=== PATIENT | male | born 1990 | race Caucasian/White ===

== ENCOUNTER 2019-12-14 19:35 | Emergency (ER) | payer BC ==
--- NOTE | 2019-12-14 20:01 | ED Physician Documentation ---
History of Present Illness - Stated complaint Stated Complaint: FLU SX - Chief complaint Chief Complaint: Heent - History obtained from History obtained from: Patient - History of Present Illness Timing: Today Pain level max: 0 Pain level now: 0 - Additonal information Additional information: 29-year-old male presents to the emergency department complaining of fever of 102 at home. Headache body aches, chills. He was seen at [facility] in [place] today in the emergency department, states had normal blood work and a negative chest x-ray and sent home. Concerned about possible influenza versus Covid. Mild cough, unchanged from his baseline. No vomiting. Occasional abdominal pain. Has constipation. Review of Systems Constitutional: reports: Fever, Chills, Myalgias Respiratory: denies: Cough GI: denies: Abdominal Pain, Nausea, Vomiting, Diarrhea Skin: denies: Rash Musculoskeletal: denies: Neck pain, Back pain Neurologic: denies: Headache PD PAST MEDICAL HISTORY - Past Medical History Past Medical History: Yes Cardiovascular: Hypertension - Past Surgical History Past Surgical History: No - Present Medications Home Medications: Ambulatory Orders Medication Instructions Recorded Confirmed Losartan [Cozaar] 50 PO DAILY 12/14/19 12/14/19 traZODone [Desyrel] 100 mg PO HS PRN 12/14/19 12/14/19 - Living Situation Living Situation: reports: With family Living Arrangement: reports: At home - Social History Does the pt smoke?: No Does the pt drink ETOH?: Yes Substance Use and Type: Marijuana PD ED PE NORMAL - Vitals Vital signs reviewed: Yes - General General: Alert and oriented X 3, No acute distress, Well developed/nourished - HEENT HEENT: PERRL, Ears normal, Moist mucous membranes, Pharynx benign - Neck Neck: Supple, no meningeal sign, Other (FROM without pain) - Cardiac Cardiac: RRR, No murmur, Strong equal pulses - Respiratory Respiratory: No respiratory distress, Clear bilaterally - Abdomen Abdomen: Soft, Non tender, Non distended - Derm Derm: Warm and dry, No rash - Extremities Extremities: No edema - Neuro Neuro: Alert and oriented X 3, dining car steward 2-12 intact, No motor deficit, No sensory deficit, Normal speech Eye Opening: Spontaneous Motor: Obeys Commands Verbal: Oriented GCS Score: 15 - Psych Psych: Normal mood, Normal affect Results - Vitals Vitals: Vital Signs - 24 hr 12/14/19 12/14/19 12/14/19 19:40 21:21 21:22 Temperature 36.6 C 36.3 C L 36.3 C L Heart Rate 92 86 86 Respiratory 18 16 16 Rate Blood Pressure 137/81 H 129/76 129/76 O2 Saturation 97 96 96 Oxygen O2 Source Room air - Labs Labs: Laboratory Tests 12/14/19 20:01 Nasal Adenovirus (PCR) NOT DETECTED Nasal B. parapertussis DNA (PCR) NOT DETECTED Nasal Coronavir 229E PCR NOT DETECTED Nasal Coronavir HKU1 PCR NOT DETECTED Nasal Coronavir NL63 PCR NOT DETECTED Nasal Coronavir OC43 PCR NOT DETECTED Nasal Enterovir/Rhinovir PCR DETECTED A Nasal Influenza B PCR NOT DETECTED Nasal Influenza A PCR NOT DETECTED Nasal Parainfluen 1 PCR NOT DETECTED Nasal Parainfluen 2 PCR NOT DETECTED Nasal Parainfluen 3 PCR NOT DETECTED Nasal Parainfluen 4 PCR NOT DETECTED Nasal RSV (PCR) NOT DETECTED Nasal B.pertussis DNA PCR NOT DETECTED Nasal C.pneumoniae (PCR) NOT DETECTED [place] Human Metapneumo PCR NOT DETECTED Nasal M.pneumoniae (PCR) NOT DETECTED Nasal SARS-CoV-2 (PCR) NOT DETECTED PD MEDICAL DECISION MAKING - ED course Complexity details: reviewed old records, reviewed results, re-evaluated patient, considered differential, d/w patient ED course: Patient is positive for enterovirus and rhinovirus. The records from [facility] in [place] were obtained, those records state that he tested negative for coronavirus and influenza yesterday, patient denies this to me. Patient is well-appearing, nontoxic. Afebrile. No evidence of meningitis. No evidence of pneumonia or sepsis. Patient and family counseled regarding signs and symptoms for which I believe and urgent re-evaluation would be necessary. Patient with good understanding of and agreement to plan and is comfortable going home at this time This document was made in part using voice recognition software. While efforts are made to proofread this document, sound alike and grammatical errors may occur. Departure - Departure Disposition: 01 Home, Self Care Clinical Impression: Viral syndrome Condition: Good Instructions: ED Viral Syndrome Follow-Up: MEGHAN WASHINGTON [Primary Care Provider] - Within 1 week Comments: Go home and rest. Drink plenty of fluids. Your coronavirus test and influenza tests are negative. You are positive for enterovirus/rhinovirus. This is a common viral illness and will resolve on its own. Discharge Date/Time: 12/14/19 21:23
[2019-12-14 21:09] LABS: C. PNEUMONIAE- RESP PCR PANEL NOT DETECTED
[2019-12-14 21:21] VITALS: BP 129/76
== END 2019-12-14 21:23 | disposition home or self-care (01) ==
LOC: ED 19:35
DX: B34.8 Other viral infections of unspecified site (principal); Z20.828 Contact with and (suspected) exposure to other viral communicable diseases; I10 Essential (primary) hypertension
CPT/HCPCS: 0202U; 99283; 99284

== ENCOUNTER 2022-09-02 09:34 | Emergency (ER) | payer BC ==
--- NOTE | 2022-09-02 09:49 | ED Physician Documentation ---
PD HPI ABD PAIN - Stated complaint Stated Complaint: ABD PX - History obtained from History obtained from: Patient - History of Present Illness Timing - onset: Today, Last night (about 3 am) Timing - duration: Hours Timing - details: Abrupt onset, Still present (has increased the past 1-2 hours), Still present in ED Quality: Cramping, Aching, Pain Location: LLQ Radiation: Left flank Improved by: No: Eating, Laying still Worsened by: Palpation (somewaht). No: Eating, Moving Associated symptoms: Nausea. No: Fever, Diarrhea, Constipation, Dysuria Similar symptoms before: Diagnosis (has history of UC and will get cramping pains at times. Had a kidney stone 8 years ago that passed in couple days.) Recently seen: Not recently seen Review of Systems Constitutional: denies: Fever, Chills Cardiac: denies: Chest pain / pressure Respiratory: denies: Dyspnea, Cough GI: reports: Abdominal Pain (since 3 am), Nausea. denies: Vomiting, Diarrhea : denies: Dysuria, Hematuria PD PAST MEDICAL HISTORY - Past Medical History Cardiovascular: Hypertension GI: Ulcerative colitis - Past Surgical History Past Surgical History: No - Present Medications Home Medications: Ambulatory Orders Medication Instructions Recorded Confirmed Losartan [Cozaar] 25 mg PO DAILY 12/14/19 09/02/22 traZODone [Desyrel] 100 mg PO HS PRN 12/14/19 09/02/22 DULoxetine [Cymbalta] 60 mg PO DAILY 09/02/22 09/02/22 Omeprazole 20 mg PO DAILY 09/02/22 09/02/22 Ondansetron Odt [Zofran] 4 mg TL Q6H PRN #10 tablet 09/02/22 Semaglutide [Ozempic] 09/02/22 Tamsulosin [Flomax] 0.4 mg PO DAILY #5 cap 09/02/22 oxyCODONE [Roxicodone] 5 mg PO Q4H PRN #14 tablet 09/02/22 - Allergies Allergies/Adverse Reactions: Allergies Allergy/AdvReac Type Severity Reaction Status Date / Time erythromycin base AdvReac Unknown Verified 09/02/22 10:00 - Social History Does the pt smoke?: No Does the pt drink ETOH?: Yes PD ED PE NORMAL - Vitals Vital signs reviewed: Yes - General General: Alert and oriented X 3, Well developed/nourished, Other (appears in significant pain. ) - Cardiac Cardiac: RRR, No murmur - Respiratory Respiratory: Clear bilaterally - Abdomen Abdomen: Normal bowel sounds, Soft, Non distended, No organomegaly, Other (LLQ tender with some guarding. No percussion tenderness. ) - Male Male : Deferred. No: Other (left inguinal lump maybe small hernia but is not tender. ) - Rectal Rectal: Deferred - Back Back: Other (some left CVA tender. ) - Derm Derm: Normal color, Warm and dry - Extremities Extremities: No edema, No calf tenderness / cord Results - Vitals Vitals: Oxygen O2 Source Room air - Labs Labs: Laboratory Tests 09/02/22 09/02/22 09/02/22 10:35 10:53 10:53 WBC 12.4 H RBC 5.40 Hgb 16.0 Hct 47.2 MCV 87.4 MCH 29.6 MCHC 33.9 RDW 12.0 Plt Count 235 MPV 11.9 H Neut # (Auto) 11.1 H Lymph # (Auto) 0.8 L Rains # (Auto) 0.4 Eos # (Auto) 0.0 Baso # (Auto) 0.0 Absolute Nucleated RBC 0.00 Nucleated RBC % 0.0 Sodium 137 Potassium 4.3 Chloride 104 Carbon Dioxide 28 Anion Gap 5.0 L BUN 13 Creatinine 1.1 Estimated GFR (MDRD) 77 L Glucose 111 H Calcium 9.4 Total Bilirubin 0.6 AST 28 ALT 48 Alkaline Phosphatase 81 Total Protein 7.0 Albumin 4.6 Globulin 2.4 Albumin/Globulin Ratio 1.9 Lipase 12 Urine Color BROWN Urine Clarity CLOUDY Urine pH 5.0 Ur Specific [place] >=1.030 H Urine Protein 100 H Urine Glucose (UA) NEGATIVE Urine Ketones 15 H Urine Occult Blood LARGE H Urine Nitrite NEGATIVE Urine Bilirubin NEGATIVE Urine Urobilinogen 0.2 (NORMAL) Ur Leukocyte Esterase NEGATIVE Urine RBC TNTC H Urine WBC 0-3 Ur Squamous Epith Cells NONE SEEN Urine Bacteria Few Ur Microscopic Review INDICATED Urine Culture Comments NOT INDICATED - Rads (name of study) abd/pelvic CT Relevant Findings:: Prelim report reviewed (Radiology report states the inguinal hernia with fat tissue only. No mention of the ureteral stone.), EMP independent interpretation of test (left sided distal ureteral stone 4 cm, without much hydronephrosis. Left inguinal hernia incidentally noted. ), See rad report PD Medical Decision Making - ED course Complexity details: re-evaluated patient (he is much improved with IV fluids and medications of toradol and dilaudid. He states he did not need repeat dosings. ), considered differential (his symptoms are c/w kidney stone though consider an episode of UC (he has history of UC). Could also consider diverticulitis. To get CT.), d/w patient Reviewed Lab Results: UA is clear. Labs showing normal WBC and renal funciton. Lipase normal. CT scan read by Radiology said no stone, but I clearly see a 4 mm stone at distal ureter almost to bladder directly in the urteral line. No coloitis seen. I will go with my interpretation of the CT and treat as kidney stone passing. Departure - Departure Disposition: 01 Home, Self Care Clinical Impression: Left sided abdominal pain, Ureterolithiasis Condition: Stable Record reviewed to determine appropriate education?: Yes Follow-Up: Colten Lopez MD [Provider Admit Priv/Credential] - Prescriptions: Tamsulosin [Flomax] 0.4 mg PO DAILY #5 cap oxyCODONE [Roxicodone] 5 mg PO Q4H PRN #14 tablet PRN Reason: Pain Ondansetron Odt [Zofran] 4 mg TL Q6H PRN #10 tablet PRN Reason: Nausea / Vomiting Comments: You do have a 4 mm stone at the end of the ureter on the left almost into the bladder. This has good probability of passing in the next 1 or 2 days. Stay adequately hydrated. Use anti-inflammatory such as naproxen or ibuprofen 2-3 times daily. Also add tamsulosin daily for the next few days. This tries to reduce the ureter tone and spasms to promote passage. Add ondansetron if needed for nausea and Tylenol 500 to 650 mg 4 times daily over the next few days. To that add oxycodone every 4-6 hours if needed for worse pain. I sent your prescriptions to the [facility] pharmacy in [place]. Follow-up with your primary care or urology if not completely resolved over the next several days to a week. Return to the ER sooner if worsening. Incidental on your CT scan was a small inguinal hernia on the left. No particular treatment needed for this if it does not have any symptoms or bother you. I am prescribing a short course of narcotic pain medication for you. These are potentially dangerous and addictive medications that should be used carefully. These medications may constipate you. Take an [id number] stool softener such as docusate twice daily with plenty of water while taking these medications. If you go 24 hours without a bowel movement, take [id number] MiraLAX, per package instructions. Do not drink or drive while taking these medications. If you received narcotic or sedating medications while in the emergency department do not drive for 24 hours. Store this medication in a safe, secure place and out of reach of children. It is a violation of federal law to give or sell this medication to another person or to use in a manner other than prescribed. The ED will not refill narcotic prescriptions, including prescriptions lost or stolen. You can dispose of unwanted medications at the [facility]'s office or at several pharmacies such as [facility]. Forms: PCP List Discharge Date/Time: 09/02/22 13:29
[2022-09-02 10:06] VITALS: BP 138/86
[2022-09-02] MEDS ORDERED: SODIUM CHLORIDE 0.9% 1,000 ML IV STA (10:10)
[2022-09-02] MEDS ORDERED: KETOROLAC 15 MG/ML VIAL IVP STA (10:10)
[2022-09-02] MEDS ORDERED: HYDROmorphone 1 MG/ML CARPUJECT IVP STA (10:10)
[2022-09-02] MEDS ORDERED: ONDANSETRON 4 MG/2 ML VIAL IVP STA (10:10)
[2022-09-02 10:42] LABS: GLUCOSE, URINE (UA) NEGATIVE (NEGATIVE); KETONES,URINE (UA) 15 mg/dL (NEGATIVE); LEUKOCYTE ESTERASE, URINE NEGATIVE (NEGATIVE); NITRITE,URINE NEGATIVE (NEGATIVE); OCCULT BLOOD,URINE LARGE (NEGATIVE); PROTEIN,URINE 100 mg/dL (NEGATIVE); UROBILINOGEN,URINE 0.2 (NORMAL) E.U./dL (NORMAL)
[2022-09-02 10:45] LABS: CLARITY,URINE CLOUDY (CLEAR)
[2022-09-02 10:49] LABS: BILIRUBIN,URINE NEGATIVE (NEGATIVE); ICTOTEST,URINE NEGATIVE
[2022-09-02 10:53] LABS: BACTERIA,URINE Few /HPF (None Seen); RBC,URINE TNTC /HPF (0-5); SQUAMOUS EPITHELIAL CELL,UR NONE SEEN (<= Few); WBC,URINE 0-3 /HPF (0-3)
[2022-09-02 11:08] LABS: BASOPHILS % (AUTO) 0.2 %; EOSINOPHILS % (AUTO) 0.2 %; HCT - HEMATOCRIT 47.2 % (42.0-52.0); LYMPHOCYTES # (AUTO) 0.8 10^3/uL (1.5-3.5); LYMPHOCYTES % (AUTO) 6.5 %; MEAN CORPUSCULAR HEMOGLOBIN 29.6 pg (27.0-31.0); MEAN CORPUSCULAR HGB CONC 33.9 g/dL (32.0-36.0); MEAN CORPUSCULAR VOLUME 87.4 fL (80.0-94.0); MEAN PLATELET VOLUME 11.9 fL (7.4-11.4); MONOCYTES # (AUTO) 0.4 10^3/uL (0.0-1.0); MONOCYTES % (AUTO) 3.4 %; NEUTROPHILS # (AUTO) 11.1 10^3/uL (1.5-6.6); NEUTROPHILS % (AUTO) 89.4 %; PLT - PLATELET COUNT 235 10^3/uL (130-450); WHITE BLOOD COUNT 12.4 x10^3/uL (4.8-10.8)
[2022-09-02 11:21] LABS: ALBUMIN 4.6 g/dL (3.2-5.5); ALBUMIN/GLOBULIN RATIO 1.9 (1.0-2.2); BILIRUBIN,TOTAL 0.6 mg/dL (0.2-1.0); CALCIUM 9.4 mg/dL (8.5-10.3); CREATININE 1.1 mg/dL (0.6-1.3); POTASSIUM 4.3 mmol/L (3.5-4.5)
[2022-09-02] MEDS ORDERED: iohexoL-300 100 ML VIAL ONE (11:35)
[2022-09-02] MEDS ORDERED: iohexoL-300 100 ML VIAL IVP ONE (11:57)
--- NOTE | 2022-09-02 12:25 | CT Report ---
PROCEDURE: CT abdomen and pelvis with contrast INDICATIONS: abd pain left side, onset this AM. CONTRAST: 100 omni 300 TECHNIQUE: After the administration of contrast, 5 mm thick sections acquired from the diaphragms to the symphys is. 5 mm thick coronal and sagittal reformats were acquired. For radiation dose reduction, the foll owing was used: automated exposure control, adjustment of mA and/or kV according to patient size. COMPARISON: FINDINGS: Image quality: Excellent. Lung bases and heart: Unremarkable. Small hiatal hernia Liver: Hepatic fatty infiltration without focal mass lesion Gallbladder and biliary tree: Spleen: No splenomegaly. Pancreas: No pancreatic ductal dilation. Adrenals: No adrenal nodule. Kidneys and ureters: No hydronephrosis. No renal cystic lesion which requires follow up. No solid mas s. Bowel and peritoneum: No bowel distension. No pathologic free fluid. Lymph nodes: No central or retroperitoneal adenopathy. Vessels: No infrarenal aortic aneurysm. PELVIS Reproductive organs: Unremarkable. Bladder: No abnormal wall thickening, accounting for underdistension. Pelvic lymph nodes: No pelvic adenopathy by size criteria. Bones: No aggressive osseous abnormality. Other: Left inguinal hernia contains fat without bowel involvement IMPRESSION: Left inguinal hernia contains fat without bowel involvement. No inflammatory change. Small hiatal hernia. Reviewed by: Wil Ruiz MD on 09/02/2022 11:23 AM JAMIL Approved by: Wil Ruiz MD on 09/02/2022 11:23 AM JAMIL Station ID: [id number]
== END 2022-09-02 13:29 | disposition home or self-care (01) ==
LOC: ED 09:34
DX: N20.1 Calculus of ureter (principal); I10 Essential (primary) hypertension
CPT/HCPCS: 36415; 74177; 80053; 81001; 83690; 85025; 96374; 96375; 99284; J1170; Q9967; 81003; 87086